=== PATIENT | male | born 1995 | race Caucasian/White ===

== ENCOUNTER 2017-01-19 23:29 | Emergency (ER) | payer OTHER ==
[~2017-01-19] VITALS: Ht 175.3 cm; Wt 70.1 kg
[~2017-01-19 23:29] MED LIST: NO HOME MEDS; PREDNISONE10 MG; QUETIAPINE FUM100 MG; SERTRALINE HCL50 MG; VYVANSE50 MG PO
[2017-01-20] MEDS ORDERED: NAPROSYN250 MG PO (00:57)
[2017-01-20] MEDS ORDERED: FLEXERIL10 MG PO (00:57)
[2017-01-20 01:07] VITALS: BP 134/92
== END 2017-01-20 01:10 | disposition home or self-care (01) ==
LOC: EME 23:29
DX: R51 Headache (principal); F17.200 Nicotine dependence, unspecified, uncomplicated
CPT/HCPCS: 70450; 99281; 99284; J1885